=== PATIENT | male | born 1960 | race Caucasian/White ===

== ENCOUNTER 2024-11-13 08:58 | Emergency (ER) | payer MEDICAID ==
[2024-11-13 09:26] LABS: HEMATOCRIT 49.8 % (40.0-54.0); HEMOGLOBIN 16.8 g/dL (14.0-18.0); MEAN CORPUSCULAR HEMOGLOBIN 33.4 pg (27.0-34.0); MEAN CORPUSCULAR HGB CONC 33.7 g/dL (33.0-35.0); RED BLOOD CELL COUNT 5.03 10^6/uL (4.6-6.2)
[2024-11-13] MEDS: Aspirin 81 MG Tab.Chew PO ONE (09:26)
[2024-11-13 09:45] LABS: A/G RATIO 0.8; ALBUMIN 3.4 g/dL (3.4-5.0); ANION GAP 12.7 mEq/L (7-13); BILIRUBIN TOTAL 0.5 mg/dL (0.2-1.0); BUN/CREATININE RATIO 9.3 (No establ ref range); CREATININE 1.29 mg/dL (0.70-1.30); EST CRCL DRUG DOSING (CG) 54.27 mL/min; POTASSIUM,K 3.7 mmol/L (3.5-5.1); PROTEIN TOTAL,TP 7.5 g/dL (6.4-8.2)
== END 2024-11-13 11:45 | disposition home or self-care (01) ==
LOC: DL.ED 08:58
DX: R07.9 Chest pain, unspecified (principal); I25.2 Old myocardial infarction; F17.210 Nicotine dependence, cigarettes, uncomplicated
CPT/HCPCS: 36415; 71046; 80053; 84484; 85027; 85379; 99285; A9270